=== PATIENT | male | born 1950 | race Caucasian/White ===

== ENCOUNTER 2023-11-11 09:48 | Outpatient (OUT) | payer MEDICARE, OTHER, SELFPAY ==
--- NOTE | 2023-11-11 10:00 | CA_ITS ---
Patient Name: OSVALDO ROBERTS MR#: [id number] : 1950 Exam Date: 11/11/2023 Ordering Doctor: DR MARIEL BRO ECHOCARDIOGRAM REPORT PROCEDURE: CA ECHO DOPPLER COMPLETE INDICATIONS: Heart murmur COMPARISON: None. DESCRIPTION: COMPLETE ECHOCARDIOGRAM Real-time transthoracic echocardiography with 2D, M-mode, spectral and color flow Doppler performed. QUALITY: Technical quality was good. LEFT VENTRICLE: Normal chamber size. Mild concentric left ventricular hypertrophy. Normal systolic function. LV EF: Normal left ventricular ejection fraction, (55-60%). DIASTOLIC: Grade II diastolic dysfunction. ATRIAL SEPTUM: LEFT ATRIUM: Moderate dilatation. RIGHT ATRIUM: Mild dilatation. RIGHT VENTRICLE: Normal chamber size. Normal right ventricular systolic function. TRICUSPID VALVE: Normal mobility and thickness. No stenosis with trivial regurgitation. Unable to assess right-sided pressures due to lack of measurable tricuspid regurgitation. MITRAL VALVE: Mildly thickened with normal mobility. Mild mitral valve stenosis. Mild mitral annular calcification. No mitral regurgitation. AORTIC VALVE: Normal trileaflet appearance. Mildly calcified aortic valve. Mildly diminished mobility. No evidence of aortic valve stenosis. DVI 0.6. No aortic regurgitation. AORTIC ROOT: Normal diameter and appearance. Ascending aorta is normal in size. PULMONIC VALVE: Not well visualized. No stenosis. No regurgitation. PERICARDIUM: No evidence of pericardial effusion. IVC: Not well visualized. PLEURA: CONCLUSION: 1. Mild concentric left ventricular hypertrophy with normal systolic function. LVEF is 55 to 60%. 2. Grade 2 diastolic dysfunction. 3. Normal right ventricular size and systolic function. 4. Mild to moderate biatrial dilatation. 5. No significant valvular dysfunction. 6. Unable to assess right-sided pressures due to lack of measurable tricuspid regurgitation. 7. No pericardial effusion. Adult Echocardiography Procedure Report Left Ventricle LVEDD (3.7 - 5.6 cm): 4.34 cm LVESD (2.2 - 4.0 cm): 3.21 cm LVIVS thickness (0.6 - 1.2 cm): 1.25 cm LVPW thickness (0.5 - 1.0 cm): 1.26 cm e': 0.09 m/s E - e': 13.74 LVOT Max Gradient: 4.56 mm[Hg] LVOT Area (cm2): 1.07 m/s Peak Velocity (LVOT): 1.07 m/s Mean Velocity (LVOT): 0.68 m/s LVOT Diameter 2.12 cm Left Atrium LA Volume Index (2D A2C): 45.20 ml/m2 Left Atrium Systolic Dimension: 3.86 cm Mitral Valve MV E to A Ratio: 0.88 Mitral Valve A-Wave Peak Velocity: 1.35 m/s Mitral Valve E-Wave Peak Velocity: 1.18 m/s Right Ventricle Aorta AO Root Diam: 3.42 cm Ascending Ao Diam: 2.61 cm Aortic Valve AoV Area (Peak Med): 2.00 cm2, 2.00 cm2 AoV Area (VTI): 2.56 cm2, 2.56 cm2 Peak Velocity(Antegrade Flow): 1.88 m/s Peak Gradient(Antegrade Flow): 14.20 mm[Hg] Mean Velocity(Antegrade Flow): 1.28 m/s Mean Gradient(Antegrade Flow): 7.41 mm[Hg] Velocity Time Integral: 36.17 cm Tricuspid Valve Pulmonic Valve Mean Gradient: 1.16 mm[Hg] Mean Velocity: 0.50 m/s Peak Velocity: 0.76 m/s, 0.82 m/s Peak Gradient: 2.70 mm[Hg], 2.34 mm[Hg] Right Atrium Right Atrium Systolic Pressure: 75.14 ml, 75.14 ml Dictated by: Lev Aguila M.D. on 11/11/2023 at 13:12 Approved by: Lev Aguila M.D. on 11/11/2023 at 13:15
== END 2023-11-11 09:49 | disposition home or self-care (01) ==
LOC: CARD 09:53
PROVIDERS: PCP Internal Medicine; Visit Provider Internal Medicine
DX: R01.1 Cardiac murmur, unspecified (principal)
CPT/HCPCS: 93306